=== PATIENT | female | born 1975 | race Caucasian/White ===

== ENCOUNTER 2022-02-17 04:08 | Emergency (ER) | payer OTHER, MEDICAID, SELFPAY ==
[2022-02-17 04:15] VITALS: BP 115/71; BP 126/76; PULSE 86; PULSE 92; RESP 18; TEMP 36.7; O2SAT 95; O2SAT 96; BMI 22.6
--- NOTE | 2022-02-17 04:28 | ED.GENADULT ---
HPI - General Adult General Chief complaint: General Medical Stated complaint: ?Drug Use Time Seen by Provider: 02/17/22 04:25 Source: patient Mode of arrival: EMS Limitations: no limitations History of Present Illness MD complaint: found sleeping in car Onset (ago): minute(s) (prior to arrival ) Severity: mild Relieving factors: none Exacerbating factors: other (did use heroin but did not need narcan woke up with voice) Associated symptoms: denies other symptoms Treatments prior to arrival: none Related Data Allergies Allergy/AdvReac Type Severity Reaction Status Date / Time trazodone [TRAZODONE] Allergy Unknown FACIAL Unverified 06/02/20 16:28 SWELLING seasonal Allergy Unknown Uncoded 05/19/13 00:00 SEASONAL ALLERGIES Allergy Unknown SINUS,ASTHM Uncoded 06/02/20 16:28 A Review of Systems Review of Systems: Constitutional : No Fever, No Chills Eyes: No Eye Pain, No Swelling, No Redness Cardiovascular : No Chest Pain, No SOB Respiratory : No Cough, No Sputum, No Wheezing Gastrointestinal : No Nausea, No Vomiting, No Diarrhea Musculoskeletal : No joint pain, No Myalgias, No Joint Swelling Skin : No Skin Lesions, No rash Neuro : No Weakness, No Numbness, No Dizziness, No Headache Psych : No Anxiety/Panic, No Depression PMFSH Past Medical History Attestation statement: The following information was validated with the patient. Medical History Opiate abuse, continuous Social History Social History (Updated 02/17/22 @ 04:29 by Didi Du DO) Patient Tobacco Use Status: Current someday Tobacco user Substance Use Type: Heroin Physical Exam ED Vital Signs: Vital Signs - 24 hr 02/17/22 04:15 Temperature 98.1 F Pulse Rate 92 Respiratory Rate 18 Blood Pressure 115/71 Pulse Oximetry 96 BMI result Body Mass Index 22.6 Appearance: Alert. Oriented X3. No acute distress. Eyes: Pupils equal, round and reactive to light. ENT: Pharynx normal. Neck: Normal inspection. Neck supple. CVS: Normal heart rate and rhythm. Respiratory: No respiratory distress. Abdomen: Soft and nontender. Skin: Skin warm and dry. Normal skin color. Extremities: No lower extremity edema. track sheffield noted on extremities no obvious signs of infection Neuro: Oriented X 3. No motor deficit. No sensory deficit. Medical Decision Making MDM Narrative Medical decision making narrative: 46 yo female found sleeping in car - used heroin but did not need narcan brought to ED, no SI, does not want SUDE evaluation, given narcan to take home and comprehensive care clinic information to take home. Agrees to stay til is it light out. Discharge Plan Discharge Clinical Impression: Opiate use Patient Disposition: Home, Self-Care Instructions: Opioid Use Disorder (ED) Additional Instructions: return to ED for any worsening symptoms or concerns please consider coming to our comprehensive care clinic for opiate treatment
--- NOTE | 2022-02-17 04:30 | PC.NURSE ---
Assumed care of pt Pt states pulled over to shoot some heroine but fell asleep before being able to do it. Pt was found by PD and called 911. Per EMS, pt was AxO x 4 upon arrival with no use of narcan Upon arrival, pt was AxO x 4, ambulatory. Pt calm and cooperative Refusing detox help at this time
[2022-02-17] MEDS: Naloxone HCl Nasal TAKE HOME 4 MG SPRAY NOSTRILALT (05:43)
== END 2022-02-17 05:55 | disposition home or self-care (01) ==
LOC: HO.ED 05:52
PROVIDERS: Emergency Provider Emergency Medicine
DX: T40.1X1A Poisoning by heroin, accidental (unintentional), initial encounter (principal); Y92.9 Unspecified place or not applicable; F11.19 Opioid abuse with unspecified opioid-induced disorder; Z71.52 Counseling for family member of drug abuser; Z79.899 Other long term (current) drug therapy
CPT/HCPCS: 99283

== ENCOUNTER 2022-09-06 11:37 | Emergency (ER) | payer MEDICAID, SELFPAY ==
--- NOTE | ~2022-09-06 | CT_ITS ---
EXAMINATION: NONCONTRAST HEAD CT NONCONTRAST MAXILLOFACIAL CT INDICATION INFORMATION: Fall. Syncope. COMPARISON: None TECHNIQUE: Separate noncontrast CT examinations of the head and maxillofacial bones were performed. Coronal and sagittal images were created for each examination at the technologist workstation. This CT examination was performed using dose optimization techniques as appropriate, variously including the following: *Automated exposure control *Adjustment of mA and/or kV according to patient size (this includes techniques or standardized protocols for targeted exams where dose is matched to indication/reason for exam; i.e. extremities or head) *Use of iterative reconstruction technique DLP: 840 mGy-cm FINDINGS: Head: There is no evidence of acute intracranial hemorrhage or territorial infarction. No abnormal mass effect or midline shift is seen. Landry to white matter differentiation is well preserved. No extra-axial fluid collections are identified. No hydrocephalus. No significant volume loss. There is no abnormal attenuation within the brain parenchyma. No acute soft tissue abnormality. No calvarial fracture. The mastoid air cells are well aerated. Maxillofacial: No acute maxillofacial fractures are seen. The pterygoid plates are intact. The lamina papyracea are intact. The zygomatic arches are intact. The nasal bone is intact. The mandible is intact. The orbital rims are intact. The frontal, maxillary, ethmoid, and sphenoid sinuses are well aerated. The uncinate process is normal bilaterally. The infundibula and middle meati are patent. The nasal septum deviates to the left. The mandibular heads are well-seated in the condylar fossa. The orbits demonstrate a normal appearance bilaterally. The globes are intact, and there are no suspicious findings to suggest retrobulbar hemorrhage. CT/CT facial bones wo IV con IMPRESSION: 1. No acute intracranial finding. 2. No acute maxillofacial fracture.
--- NOTE | 2022-09-06 11:42 | ECG_ITS ---
Test Reason : SYNCOPE Blood Pressure : / mmHG Vent. Rate : 068 BPM Atrial Rate : 068 BPM P-R Int : 178 ms QRS Dur : 088 ms QT Int : 464 ms P-R-T Axes : 068 050 057 degrees QTc Int : 493 ms Normal sinus rhythm Nonspecific T wave abnormality Prolonged QT Abnormal ECG When compared with ECG of 26-JUL-2012 04:22, T wave amplitude has decreased in Lateral leads Referred By: Marissa Rose Electronically Signed By:Keith Graves
[2022-09-06 11:49] VITALS: BP 126/84; BP 154/74; PULSE 81; PULSE 84; RESP 16; TEMP 36.4; O2SAT 97; BMI 22.6
[2022-09-06 12:39] VITALS: BP 111/79; PULSE 80; RESP 16; TEMP 36.4; O2SAT 99
--- NOTE | 2022-09-06 13:00 | PC.NURSE ---
patient a/ox4 . eileenrla . heart rate regular at 80 beats per minute . breathing even and unlabored , lungs clear throughout . patient has superficial scratches on bridge of nose , left side of cheek and forehead . bleeding controlled . abdomen soft . positive bowel sounds in all four quadrants . patient reports syncope episode believes it was anxiety related, history of panic attacks . labs drawn and sent . patient medicated with zofran as ordered . patient aware of plan of care .
--- NOTE | 2022-09-06 13:00 | PC.NURSE ---
patient a/ox4 . eileenrla . heart rate regular at 80 beats per minute . breathing even and unlabored . lungs clear throughout . skin warm and dry , appropriate for ethnicity . abdomen soft . positive for bowel sounds . Iv placed in left forearm . labs obtained and sent . patient to ultrasound . patient has had type and screen done . patient on cafeteria monitor . patient reports taking oral medication on August 16 and has had increased bleeding since then , overnight last night she has gone through three pads . patient is aware of plan of care .
[2022-09-06 13:03] LABS: MANUAL DIFF FLAG NO
[2022-09-06 13:04] LABS: Basophils Percent Auto 0.4 % (0-2); Eosinophils Percent Auto 0.4 % (0-4); Hematocrit 39.1 % (37.0-47.0); Hemoglobin 12.6 g/dl (12.0-16.0); Imm Gran Abs Auto 0.01 X10*3/uL (0.00-0.03); Imm Gran Pct Auto 0.2 % (0.0-0.4); Lymphocytes Absolute Auto 0.6 X10*3/uL (1.2-4.9); Lymphocytes Percent Auto 12.8 % (20-40); Mean Corpuscular HGB Conc 32.2 g/dl (31.0-35.0); Mean Corpuscular Hemoglobin 29.9 pg (27.0-33.0); Mean Corpuscular Volume 92.9 fL (80.0-98.0); Mean Platelet Volume 10.5 fL (9.4-12.3); Monocytes Absolute Auto 0.3 X10*3/uL (0.1-1.2); Monocytes Percent Auto 5.6 % (2-11); Neutrophils Absolute Auto 3.6 x10*3/uL (2.0-8.3); Neutrophils Percent Auto 80.6 % (45-73); Platelet Count 201 X10*3/uL (160-400); Red Blood Count 4.21 X10*6/uL (4.20-5.50); Red Cell Distribution Width 13.6 % (11.0-16.0); White Blood Count 4.5 X10*3/uL (4.8-10.8)
--- NOTE | 2022-09-06 13:08 | ED.SYNCOPE ---
HPI - Syncope General Chief Complaint: Syncope Stated Complaint: passed out at home,scratches to face,acosta,vomiting Time Seen by Provider: 09/06/22 11:41 Source: patient and EMS Mode of arrival: EMS Limitations: no limitations History of Present Illness HPI narrative: 46-year-old female with history of polysubstance abuse recent incarceration presents to the emergency department by EMS today after passing out at home in her driveway. Per EMS, patient vomited several times EN route to the hospital. Patient states states she does not remember falling, however; prior to passing out she had a headache and was not feeling well. On arrival to the emergency department multiple abrasions noted on patient's face. She endorses recent dry cough and vague upper respiratory symptoms. She denies any fever, chills, shortness breath, chest pain, diarrhea, constipation, numbness, tingling, weakness, or dizziness. She denies any known sick contacts or recent illness. MD complaint: loss of consciousness Onset (ago): hour(s) -: second(s) Prodromal symptoms: headache Witnessed: Yes - by Bystander Context: other (walking to mailbox) Injuries sustained associated with event: face Current symptoms: back to baseline Treatments prior to arrival: none Related Data Allergies Allergy/AdvReac Type Severity Reaction Status Date / Time trazodone [TRAZODONE] Allergy Unknown FACIAL Unverified 06/02/20 16:28 SWELLING seasonal Allergy Unknown Uncoded 05/19/13 00:00 SEASONAL ALLERGIES Allergy Unknown SINUS,ASTHM Uncoded 06/02/20 16:28 A Review of Systems Review of Systems: In addition to documented HPI above, the additional ROS was obtained: Constitutional: No Weight loss, No Fever, No Chills ENT/Mouth: No Ear Pain, No Nasal Congestion, No Sinus Pain, No Hoarseness, No sore throat, No Rhinorrhea, No Swallowing Difficulty Cardiovascular: No Chest Pain, No SOB Respiratory: No Sputum, No Wheezing Gastrointestinal: No Diarrhea, No Constipation, No Abdominal pain Genitourinary: No Dysuria, No Urinary Frequency, No Hematuria, No Urinary Incontinence/retention, No Urgency, No Flank Pain Musculoskeletal: No joint pain, No Myalgias, No Joint Swelling Skin: No Skin Lesions, No rash Neuro: No Weakness, No Numbness, No Paresthesias Yes all other systems are reviewed and are negative PMFSH Past Medical History Attestation statement: The following information was validated with the patient. Source: old records reviewed Medical History Opiate abuse, continuous Social History Social History Patient Tobacco Use Status: Current someday Tobacco user Substance Use Type: Heroin Advance Directives: No Advance Directives Information Provided: Yes Patient : No Physical Exam Vital Signs: Vital Signs: Last Vital Signs Temp 97.5 F 09/06/22 12:39 Pulse 80 09/06/22 12:39 Resp 16 09/06/22 12:39 BP 111/79 09/06/22 12:39 Pulse Ox 99 09/06/22 12:39 O2 Del Method 09/06/22 12:39 BMI result Body Mass Index 22.6 Const: General: cooperative, alert and awake Nutritional Appearance: average body habitus Orientation/consciousness: patient oriented x3 Limitations: no limitations HEENT: Head: Yes normal to inspection, Yes normocephalic, Yes abrasion, No hematoma, No scalp tenderness and No periorbital ecchymosis Ears: hearing grossly normal bilaterally and external ears normal General nose exam: Normal external nose present and Normal nares present Face and sinus: Yes face symmetric, Yes abrasion, No ecchymosis and No erythema Mouth: Normal oral and palatal mucosa present, lip normal and tongue normal Throat: Yes posterior oropharynx normal Eyes: General: appearance normal, both eyes and all related structures Visual Shipman: normal visual shipman by confrontation Alignment and Position: alignment normal Periorbital: periorbital findings normal Eyelids: Yes eyelids normal Conjunctivae: conjunctivae normal Sclerae: sclerae normal Corneas: corneas normal Pupils: Equal, round and reactive pupils present EOM: EOMs intact bilaterally Neck: Neck: Yes normal visual inspection and Yes full ROM Chest: Chest palpation & inspection: normal inspection of the chest Resp: Effort & Inspection: normal respiratory effort and not labored Auscultation: clear to auscultation bilaterally, no crackles, no rhonchi and no wheezes Cardio: Rate: regular rate Rhythm: regular rhythm Back/Spine/Pelvis: Cervical Spine: cervical ROM normal Thoracic/Lumbar Spine: thoraco-lumbar ROM normal Skin: General skin exam: no rashes or lesions noted Trauma: abrasion Hair: normal Nails: normal Neuro: General: patient oriented x3, tone normal and moves all extremities Cranial nerves: Yes Equal, round and reactive pupils present Cognition (Neuro): normal cognition Gait exam (Neuro): Normal gait present Motor exam (neuro): 5/5 motor strength present throughout Extrem: General: Yes normal to inspection, Yes full ROM and Yes capillary refill normal Psych: Appearance: grossly normal Mental Status: mental status grossly normal Speech and movement: Normal speech and movement present Affect: normal affect Attitude: cooperative Thought content: Normal thought content present Medications Administered Discontinued Medications Generic Name Dose Route Start Last Admin Trade Name Freq PRN Reason Stop Dose Admin Ondansetron HCl 4 mg 09/06/22 13:08 09/06/22 13:13 Ondansetron Odt 4 Mg Tab.Rapdis TRANSLINGU 09/06/22 13:09 4 mg ONCE ONE Administration Medical Decision Making Medical Decision Making [facility] Narrative: 46-year-old female with history of polysubstance abuse and recent incarceration presents to the emergency department by EMS today after passing out at home in her driveway sustaining facial abrasions. Per EMS, patient vomited several times EN route to the hospital. Patient states states she does not remember falling, however; prior to passing out she had a headache and was not feeling well. CT head/brain/maxillofacial showing no acute intracranial findings, no acute maxillofacial fractures. Serology negative. Urinalysis negative for infection. Blood work unremarkable. EKG NSR with prolonged QT, when compared to EKG 07/26/12 t wave amplitude has decreased in lateral leads. Pt safe for discharge with recommendation to follow-up with her primary care provider. HPI, PE, diagnostics, and plan discussed with patient with no unanswered questions at this time. Educated to return to the emergency department with headache, vision changes, worsening dizziness, numbness, tingling, weakness, chest pain, shortness breath or any other emergent symptoms. Lab Data [facility] Lab Attestation statement: I reviewed the patient's lab results. Result Diagrams: 09/06/22 12:57 09/06/22 12:57 Labs: Lab Results 09/06/22 12 12 Range/Units 12:41 12:57 12:57 WBC 4.5 L (4.8-10.8) X10*3/uL RBC 4.21 (4.20-5.50) X10*6/uL Hgb 12.6 (12.0-16.0) g/dl Hct 39.1 (37.0-47.0) % MCV 92.9 (80.0-98.0) fL MCH 29.9 (27.0-33.0) pg MCHC 32.2 (31.0-35.0) g/dl RDW 13.6 (11.0-16.0) % Plt Count 201 (160-400) X10*3/uL MPV 10.5 (9.4-12.3) fL Immature Gran % (Auto) 0.2 (0.0-0.4) % Neut % (Auto) 80.6 H (45-73) % Lymph % (Auto) 12.8 L (20-40) % Owen % (Auto) 5.6 (2-11) % Eos % (Auto) 0.4 (0-4) % Baso % (Auto) 0.4 (0-2) % Lymph # (Auto) 0.6 L (1.2-4.9) X10*3/uL Owen # (Auto) 0.3 (0.1-1.2) X10*3/uL Eos # (Auto) 0.0 (0.0-0.4) X10*3/uL Baso # (Auto) 0.0 (0.0-0.2) X10*3/uL Abs Immat Gran (auto) 0.01 (0.00-0.03) X10*3/uL Absolute Neuts (auto) 3.6 (2.0-8.3) x10*3/uL Absolute Nucleated RBC 0.000 (0.0-0.012) X10*3/uL Nucleated RBC % (auto) 0.0 (0.0-0.2) /100WBC Sodium 140 (135-145) mmol/L Potassium 4.3 (3.3-5.1) mmol/L Chloride 104 (96-108) mmol/L Carbon Dioxide 26 (22-29) mmol/L Anion Gap 14 (12-20) BUN 23 H (9-16) mg/dL Creatinine 1.08 (0.5-1.4) mg/dL Estim Creat Clear Calc 62.2 Estimated GFR 55 Random Glucose 102 (60-115) mg/dL Calcium 9.6 (8.4-10.2) mg/dL Total Bilirubin 0.5 (0.0-1.0) mg/dL AST 35 H (5-31) U/L ALT 65 H (0-31) U/L Alkaline Phosphatase 166 H (39-117) U/L Troponin I High Sens (<3.5-17.0) ng/L Total Protein 7.6 (6.5-8.0) g/dL Albumin 4.6 (3.5-5.0) g/dL Urine Color Urine Appearance Urine pH (5.0-9.0) Ur Specific Bartlett (1.005-1.025) Urine Protein (Neg-Trace) mg/dL Urine Glucose (UA) (Negative) mg/dL Urine Ketones (Negative) mg/dL Urine Blood (Negative) Urine Nitrite (Negative) Ur Leukocyte Esterase (Negative) Urine RBC (0-2) /HPF Urine WBC (0-5) /HPF Ur Squamous Epith Cells (0-2) /HPF Urine Bacteria (None Seen) Hyaline Casts (0-2) /LPF Influenza Type A (PCR) NEGATIVE (Negative) Influenza Type B (PCR) NEGATIVE (Negative) RSV RNA Qual (PCR) NEGATIVE (Negative) SARS-CoV-2 RNA (RT-PCR) NEGATIVE (Negative) 09/06/22 09/06/22 Range/Units 12:57 13:22 WBC (4.8-10.8) X10*3/uL RBC (4.20-5.50) X10*6/uL Hgb (12.0-16.0) g/dl Hct (37.0-47.0) % MCV (80.0-98.0) fL MCH (27.0-33.0) pg MCHC (31.0-35.0) g/dl RDW (11.0-16.0) % Plt Count (160-400) X10*3/uL MPV (9.4-12.3) fL Immature Gran % (Auto) (0.0-0.4) % Neut % (Auto) (45-73) % Lymph % (Auto) (20-40) % Owen % (Auto) (2-11) % Eos % (Auto) (0-4) % Baso % (Auto) (0-2) % Lymph # (Auto) (1.2-4.9) X10*3/uL Owen # (Auto) (0.1-1.2) X10*3/uL Eos # (Auto) (0.0-0.4) X10*3/uL Baso # (Auto) (0.0-0.2) X10*3/uL Abs Immat Gran (auto) (0.00-0.03) X10*3/uL Absolute Neuts (auto) (2.0-8.3) x10*3/uL Absolute Nucleated RBC (0.0-0.012) X10*3/uL Nucleated RBC % (auto) (0.0-0.2) /100WBC Sodium (135-145) mmol/L Potassium (3.3-5.1) mmol/L Chloride (96-108) mmol/L Carbon Dioxide (22-29) mmol/L Anion Gap (12-20) BUN (9-16) mg/dL Creatinine (0.5-1.4) mg/dL Estim Creat Clear Calc Estimated GFR Random Glucose (60-115) mg/dL Calcium (8.4-10.2) mg/dL Total Bilirubin (0.0-1.0) mg/dL AST (5-31) U/L ALT (0-31) U/L Alkaline Phosphatase (39-117) U/L Troponin I High Sens < 3.5 (<3.5-17.0) ng/L Total Protein (6.5-8.0) g/dL Albumin (3.5-5.0) g/dL Urine Color Yellow Urine Appearance Clear Urine pH 6.0 (5.0-9.0) Ur Specific Bartlett 1.020 (1.005-1.025) Urine Protein Trace (Neg-Trace) mg/dL Urine Glucose (UA) Negative (Negative) mg/dL Urine Ketones Negative (Negative) mg/dL Urine Blood Negative (Negative) Urine Nitrite Negative (Negative) Ur Leukocyte Esterase Negative (Negative) Urine RBC 0-2 (0-2) /HPF Urine WBC 0-5 (0-5) /HPF Ur Squamous Epith Cells 3-5 (0-2) /HPF Urine Bacteria None Seen (None Seen) Hyaline Casts 0-2 (0-2) /LPF Influenza Type A (PCR) (Negative) Influenza Type B (PCR) (Negative) RSV RNA Qual (PCR) (Negative) SARS-CoV-2 RNA (RT-PCR) (Negative) Radiology Impression Discussion of test interpretation with radiology: I have reviewed the radiologist's reading. Radiologist Impression: EXAMINATION: NONCONTRAST HEAD CT NONCONTRAST MAXILLOFACIAL CT INDICATION INFORMATION: Fall. Syncope. COMPARISON: None TECHNIQUE: Separate noncontrast CT examinations of the head and maxillofacial bones were performed. Coronal and sagittal images were created for each examination at the technologist workstation. This CT examination was performed using dose optimization techniques as appropriate, variously including the following: *Automated exposure control *Adjustment of mA and/or kV according to patient size (this includes techniques or standardized protocols for targeted exams where dose is matched to indication/reason for exam; i.e. extremities or head) *Use of iterative reconstruction technique DLP: 840 mGy-cm FINDINGS: Head: There is no evidence of acute intracranial hemorrhage or territorial infarction. No abnormal mass effect or midline shift is seen. Landry to white matter differentiation is well preserved. No extra-axial fluid collections are identified. No hydrocephalus. No significant volume loss. There is no abnormal attenuation within the brain parenchyma. No acute soft tissue abnormality. No calvarial fracture. The mastoid air cells are well aerated. Maxillofacial: No acute maxillofacial fractures are seen. The pterygoid plates are intact. The lamina papyracea are intact. The zygomatic arches are intact. The nasal bone is intact. The mandible is intact. The orbital rims are intact. The frontal, maxillary, ethmoid, and sphenoid sinuses are well aerated. The uncinate process is normal bilaterally. The infundibula and middle meati are patent. The nasal septum deviates to the left. The mandibular heads are well-seated in the condylar fossa. The orbits demonstrate a normal appearance bilaterally. The globes are intact, and there are no suspicious findings to suggest retrobulbar hemorrhage. CT/CT head/brain wo IV con IMPRESSION: 1.? No acute intracranial finding. 2.? No acute maxillofacial fracture. ? Dictated By: Juan Mcdonald MD Signed By: <Electronically signed by Juan Mcdonald MD in OV> 09/06/22 1258 DD/ 1213 TD/TT:? System Support Analyst: MARY Discharge Plan Discharge Clinical Impression: Syncope Patient Disposition: Home, Self-Care Instructions: Syncope (ED), Panic Attack (ED) Additional Instructions: Your CT head/brain/maxillofacial shows no acute intracranial findings, no acute maxillofacial fractures. You are negative for flu, RSV, or Covid. Your urine sample is negative for infection. Your blood work unremarkable. EKG is normal sinus rhythm with prolonged QT. You are safe for discharge at this time. Please follow-up with her primary care provider. Please return to the emergency department with headache, vision changes, worsening dizziness, numbness, tingling, weakness, chest pain, shortness breath or any other emergent symptoms. Referrals: [facility] [Provider Group] [facility] [Provider Group] [facility] [Provider Group] Stand Alone Forms: Work/School Release Interventions: ED Discharge Assessment Last Done: 09/06/22 14:06 Discharge Date/Time: 09/06/22 14:07 Print Language: Amharic
[2022-09-06] MEDS: Ondansetron ODT 4 MG TAB.RAPDIS TRANSLINGU (13:13)
[2022-09-06 13:26] LABS: Alanine Aminotransferase 65 U/L (0-31); Albumin Level 4.6 g/dL (3.5-5.0); Alkaline Phosphatase 166 U/L (39-117); Anion Gap 14 (12-20); Aspartate Amino Transferase 35 U/L (5-31); Bilirubin Total 0.5 mg/dL (0.0-1.0); Blood Urea Nitrogen 23 mg/dL (9-16); Calcium 9.6 mg/dL (8.4-10.2); Carbon Dioxide 26 mmol/L (22-29); Chloride 104 mmol/L (96-108); Creatinine Clr Calc Pharmacy 62.2; Estimated Glomerular Filt Rate 55; Glucose Random 102 mg/dL (60-115); Potassium 4.3 mmol/L (3.3-5.1); Sodium 140 mmol/L (135-145); Total Protein 7.6 g/dL (6.5-8.0)
[2022-09-06 13:34] LABS: Appearance Urine Clear; Color Urine Yellow; Glucose Urine UA Negative (Negative); Leukocyte Esterase Urine Negative (Negative); Nitrite Urine Negative (Negative); Urine Blood Negative (Negative); Urine Ketones Negative (Negative); Urine Protein Trace mg/dL (Neg-Trace)
[2022-09-06 13:36] LABS: Influenza A PCR NEGATIVE (Negative); Influenza B PCR NEGATIVE (Negative); Resp Syncy Virus RNA Qual PCR NEGATIVE (Negative); SARS COV2 PCR INHOUSE NEGATIVE (Negative)
[2022-09-06 13:39] LABS: Bacteria Urine None Seen (None Seen); Hyaline Casts Urine 0-2 /LPF (0-2); RBC Urine 0-2 /HPF (0-2); WBC Urine 0-5 /HPF (0-5)
[2022-09-06 13:40] LABS: Troponin-I High Sensitivity < 3.5 ng/L (<3.5-17.0)
== END 2022-09-06 14:07 | disposition home or self-care (01) ==
PROVIDERS: Nurse Practitioner Family; Emergency Provider Emergency Medicine Emergency Medical Services
DX: R55 Syncope and collapse (principal); Z20.822 Contact with and (suspected) exposure to COVID-19; Z20.828 Contact with and (suspected) exposure to other viral communicable diseases; F11.20 Opioid dependence, uncomplicated; F17.200 Nicotine dependence, unspecified, uncomplicated
CPT/HCPCS: 0241U; 36415; 70450; 70486; 80053; 81001; 84484; 85025; 93005; 99284

== ENCOUNTER 2022-09-07 05:04 | Emergency (ER) | payer MEDICAID, SELFPAY ==
[2022-09-07 05:15] VITALS: BP 112/20; BP 117/72; PULSE 104; PULSE 85; RESP 14; TEMP 36.7; O2SAT 96; O2SAT 99; BMI 22.6
[2022-09-07 05:50] LABS: COVID-19 Test Negative (Negative)
[2022-09-07 06:18] LABS: Appearance Urine Clear; Color Urine Yellow; Glucose Urine UA Negative (Negative); Leukocyte Esterase Urine Trace (Negative); Nitrite Urine Negative (Negative); PH 5.5 (5.0-9.0); Specific Gravity - Urine 1.025 (1.005-1.025); UMIC TRIGGER UA YES; Urine Blood Negative (Negative); Urine Ketones Negative (Negative); Urine Protein Trace mg/dL (Neg-Trace)
[2022-09-07 06:23] LABS: Bacteria Urine 2+ (None Seen); Hyaline Casts Urine 0-2 /LPF (0-2); RBC Urine 0-2 /HPF (0-2); WBC Urine 0-5 /HPF (0-5)
[2022-09-07 06:27] LABS: Amphetamine Screen Urine Not Detected (Not Detect); Barbiturates, Urine Not Detected (Not Detect); Benzodiazepines Screen Urine Not Detected (Not Detect); Cannabinoid Screen Urine Not Detected (Not Detect); Cocaine Screen Urine POSITIVE (Not Detect); Fentanyl, urine POSITIVE (Not Detect); Opiate Screen Urine POSITIVE (Not Detect); Phencyclidine Screen Urine Not Detected (Not Detect)
[2022-09-07 07:05] LABS: UPreg QC Valid YES; Urine Pregnancy NEGATIVE (NEGATIVE)
--- NOTE | 2022-09-07 07:11 | ED.GENADULT ---
HPI - General Adult General Chief complaint: Anxiety Stated complaint: FOUND PASSED OUT IN CAR,?CRISIS Time Seen by Provider: 09/07/22 06:38 Source: patient Mode of arrival: EMS History of Present Illness HPI narrative: This is a 46-year-old female who is brought in by EMS with EMS reports that patient was found by police department ?passed out in a parked vehicle?. Patient states that she was not passed out and that she saw the police come into the parking lot. She states that ?I was trying to use then lost the vein?. As per EMS reports no Narcan was given she denies SI/HI and is not interested in detox Related Data Allergies Allergy/AdvReac Type Severity Reaction Status Date / Time trazodone [TRAZODONE] Allergy Unknown FACIAL Unverified 06/02/20 16:28 SWELLING seasonal Allergy Unknown Uncoded 05/19/13 00:00 SEASONAL ALLERGIES Allergy Unknown SINUS,ASTHM Uncoded 06/02/20 16:28 A Review of Systems Review of Systems: Pertinent positives and negatives as stated in HPI 10 point review of systems is otherwise negative. PMFSH Past Medical History Source: nursing notes reviewed Medical History Opiate abuse, continuous Social History Social History Patient Tobacco Use Status: Current someday Tobacco user Substance Use Type: Heroin Advance Directives: No Advance Directives Information Provided: Yes Physical Exam ED Vital Signs: Vital Signs - 24 hr 09/07/22 05:15 Temperature 98.1 F Pulse Rate 85 Respiratory Rate 14 Blood Pressure 117/72 Pulse Oximetry 96 Oxygen Delivery Method Room Air BMI result Body Mass Index 22.6 VITAL SIGNS: Reviewed. GENERAL: Well developed, well nourished, in no acute distress. HEAD: Normocephalic/facial abrasion to the nose, under the left infraorbital, as well as the left cheek EYES: PERRLA, EOMI EARS: Ext canals without abnormality OROPHARYNX: no oral lesions noted, posterior pharynx clear LUNGS: Normal breath sounds. No adventitious sounds or accessory muscle use. SpO2<96> CARDIOVASCULAR: Regular rate and rhythm without noted murmurs ABDOMEN: Soft, non-tender, non-distended with bowel sounds. MUSCULOSKELETAL: No tenderness, deformities, or effusions noted on gross inspection. EXTREMITIES: No cyanosis, clubbing or edema. SKIN: Inspection of the skin reveals no rashes NEUROLOGIC: Alert and oriented x 4. Strength and sensation to light touch were grossly intact x 4. Medical Decision Making Medical Decision Making [facility] Narrative: 46-year-old female with history and clinical presentation consistent with drug use, no Narcan needed or given EN route or prior to arrival of EMS, no need for Narcan here in the emergency room, patient is completely alert and oriented, she denies any SI/HI does not want any detox at this time. Patient is hemodynamically stable will be discharged home with home Narcan. All physical injuries noted were from prior visits to the emergency room and I have reviewed all of these documents and feel that the workup was appropriate. Lab Data [facility] Lab Attestation statement: I reviewed the patient's lab results. Labs: Lab Results 09/07/22 09/07/22 09/07/22 Range/Units 05:18 06:07 06:07 Urine Color Yellow Urine Appearance Clear Urine pH 5.5 (5.0-9.0) Ur Specific [place] 1.025 (1.005-1.025) Urine Protein Trace (Neg-Trace) mg/dL Urine Glucose (UA) Negative (Negative) mg/dL Urine Ketones Negative (Negative) mg/dL Urine Blood Negative (Negative) Urine Nitrite Negative (Negative) Ur Leukocyte Esterase Trace H (Negative) Urine RBC 0-2 (0-2) /HPF Urine WBC 0-5 (0-5) /HPF Ur Squamous Epith Cells 11-20 (0-2) /HPF Urine Bacteria 2+ (None Seen) Hyaline Casts 0-2 (0-2) /LPF Urine Test (NEGATIVE) Urine Opiates Screen POSITIVE H (Not Detect) Urine Fentanyl Screen POSITIVE H (Not Detect) Ur Barbiturates Screen Not Detected (Not Detect) Ur Phencyclidine Scrn Not Detected (Not Detect) Ur Amphetamines Screen Not Detected (Not Detect) U Benzodiazepines Scrn Not Detected (Not Detect) Urine Cocaine Screen POSITIVE H (Not Detect) U Marijuana (THC) Screen Not Detected (Not Detect) COVID-19 (MARY) Negative (Negative) COVID-19 Clin Com See Note 09/07/22 Range/Units 06:07 Urine Color Urine Appearance Urine pH (5.0-9.0) Ur Specific [place] (1.005-1.025) Urine Protein (Neg-Trace) mg/dL Urine Glucose (UA) (Negative) mg/dL Urine Ketones (Negative) mg/dL Urine Blood (Negative) Urine Nitrite (Negative) Ur Leukocyte Esterase (Negative) Urine RBC (0-2) /HPF Urine WBC (0-5) /HPF Ur Squamous Epith Cells (0-2) /HPF Urine Bacteria (None Seen) Hyaline Casts (0-2) /LPF Urine Test NEGATIVE (NEGATIVE) Urine Opiates Screen (Not Detect) Urine Fentanyl Screen (Not Detect) Ur Barbiturates Screen (Not Detect) Ur Phencyclidine Scrn (Not Detect) Ur Amphetamines Screen (Not Detect) U Benzodiazepines Scrn (Not Detect) Urine Cocaine Screen (Not Detect) U Marijuana (THC) Screen (Not Detect) COVID-19 (MARY) (Negative) COVID-19 Clin Com External Record Review External record reviewed: Outpatient record Social Determinants Polysubstance use Discharge Plan Discharge Clinical Impression: Polysubstance use disorder, Anxiety Patient Disposition: Home, Self-Care Instructions: Anxiety (ED), Polysubstance Abuse (ED) Additional Instructions: Return to the ER for any worsening or recurrence of symptoms. Referrals: [facility] [Primary Care Provider] -
[2022-09-07] MEDS: Naloxone HCl Nasal TAKE HOME 4 MG SPRAY NOSTRILALT (07:37)
== END 2022-09-07 07:38 | disposition home or self-care (01) ==
PROVIDERS: Emergency Provider Student in an Organized Health Care Education/Training Program
DX: F11.19 Opioid abuse with unspecified opioid-induced disorder (principal); F17.210 Nicotine dependence, cigarettes, uncomplicated; Z71.6 Tobacco abuse counseling; Z20.822 Contact with and (suspected) exposure to COVID-19; Z79.899 Other long term (current) drug therapy
CPT/HCPCS: 80307; 81001; 81025; 87635; 99284

== ENCOUNTER 2023-02-21 09:29 | Emergency (ER) | payer OTHER, MEDICAID, SELFPAY ==
[2023-02-21 09:35] VITALS: BP 144/75; PULSE 64; O2SAT 98
--- NOTE | 2023-02-21 09:48 | ED.GENADULT ---
HPI - General Adult General Chief complaint: General Medical Stated complaint: WANTS DETOX FOR HEROIN RELAPSE 2 MTHS AGO PER EMS Time Seen by Provider: 02/21/23 09:44 Source: patient and EMS Mode of arrival: EMS Limitations: no limitations History of Present Illness HPI narrative: 47-year-old female with history of drug abuse presents with falling sleep on the side of the road. She denies suicidal or homicidal ideation. She uses opioids on a intermittent basis. She denies any additional alcohol drug use. Patient reports having not slept for the past 2-3 days. She is in the process of being evaluated for an IOP at the [facility]. She does not wish to have any additional resources provided to her at this time. Related Data Allergies Allergy/AdvReac Type Severity Reaction Status Date / Time trazodone [TRAZODONE] Allergy Unknown FACIAL Verified 02/21/23 09:53 SWELLING seasonal Allergy Unknown Nasal Uncoded 02/21/23 09:53 congestion SEASONAL ALLERGIES Allergy Unknown SINUS,ASTHM Uncoded 06/02/20 16:28 A Review of Systems Review of Systems: GEN: Well developed, no acute distress, alert, oriented HEENT: Normocephalic, atraumatic, normal external ears, nose appears normal, no oropharyngeal edema or exudates Eyes: Normal to appearance Neck: Supple, no lymphadenopathy Respiratory: Talks in complete sentences, no respiratory distress, clear to auscultation bilaterally Cardiovascular: Regular rate and rhythm, no murmurs rubs or gallops Abdomen: Soft, nontender, nondistended, no guarding, no rebound Back: No CVA tenderness Extremities: No clubbing cyanosis or edema Neurologic: No focal neurologic deficits, cranial nerves 2-12 intact, strength is 5/5 bilaterally Skin: No rash PMFSH Past Medical History Medical History Opiate abuse, continuous Social History Social History Patient Tobacco Use Status: Current someday Tobacco user Substance Use Type: Heroin Physical Exam ED Vital Signs: Vital Signs - 24 hr 02/21/23 09:53 Temperature 97.8 F Pulse Rate 69 Respiratory Rate 16 Blood Pressure 127/75 Pulse Oximetry 95 Oxygen Delivery Method Room Air BMI result Body Mass Index 22.6 GEN: Well developed, no acute distress, alert, oriented HEENT: Normocephalic, atraumatic, normal external ears, nose appears normal Eyes: Normal to appearance Neck: Supple, no lymphadenopathy Respiratory: Talks in complete sentences, no respiratory distress Extremities: No clubbing cyanosis or edema Neurologic: No focal neurologic deficits, cranial nerves 2-12 intact, gait normal Skin: No rash Course Course Course Narrative: 47-year-old female with history of substance abuse presents with falling asleep on the side a row. She denies any suicide or homicidal ideation. She does not wish psychiatric evaluation. She does not seek additional resources for assistance. She is currently being evaluated for an IOP at the [facility]. She will be discharged at this time. Patient has Narcan at home Medical Decision Making Medical Decision Making [facility] Narrative: Patient presents with polysubstance abuse. She denies any suicide or homicidal ideation. She does not warrant being held against her wishes. This time, patient has decision-making capacity may be discharged home. Differential Diagnosis Differential Diagnoses: The differential diagnosis associated with the presentation includes (Depression, anxiety, substance abuse) Independent Historian Clinical information obtained from an independent historian. History obtained from or confirmed by: EMS Chronic Conditions Patient?s care impacted by: Other (Substance abuse) Discharge Plan Discharge Clinical Impression: Opioid abuse Patient Disposition: Home, Self-Care Instructions: Opioid Use Disorder (ED) Referrals: [facility] [Provider Group]
[2023-02-21 09:53] VITALS: BP 127/75; PULSE 69; RESP 16; TEMP 36.6; O2SAT 95; BMI 22.6
[2023-02-21] MEDS: Naloxone HCl Nasal TAKE HOME 4 MG SPRAY NOSTRILALT (10:48)
--- NOTE | 2023-02-21 11:19 | MHC.RECOVSUP ---
Met with pt in ED6h who is here for OUD. Pt informs she has been using about 1 bag of heroin a day with a little cocaine in addition to her 98mg of Methadone from [facility] for about 1 month. Pt informs [facility] and thinks that will help her cut back on her use and is willing to communicate with [facility] about increasing her dose. At this time pt is not interested in ATS and was provided resources and encouraged to call [facility] with any questions. pt is set to Dc and provider is aware.
== END 2023-02-21 10:50 | disposition home or self-care (01) ==
PROVIDERS: Emergency Provider Emergency Medicine
DX: F11.10 Opioid abuse, uncomplicated (principal); F17.200 Nicotine dependence, unspecified, uncomplicated
CPT/HCPCS: 99282; 99283

== ENCOUNTER 2023-06-26 03:04 | Emergency (ER) | payer OTHER, SELFPAY ==
[2023-06-26 03:09] VITALS: BP 124/88; BP 130/70; PULSE 90; PULSE 92; RESP 18; TEMP 36.8; O2SAT 98; BMI 22.6
--- NOTE | 2023-06-26 03:53 | MHC.EDTECH ---
PT belongings and valuables locked in [facility] laundry closet. 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
--- NOTE | 2023-06-26 04:12 | ED.OVERDOSE ---
HPI - Overdose General Chief Complaint: Overdose Stated Complaint: Substance Abuse Time Seen by Provider: 06/26/23 03:56 Source: patient and EMS Mode of arrival: EMS Limitations: no limitations History of Present Illness HPI Narrative: A 47-year-old female came in by ambulance for evaluation after cocaine use. 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 Related Data Allergies Allergy/AdvReac Type Severity Reaction Status Date / Time trazodone [TRAZODONE] Allergy Unknown FACIAL Verified 02/21/23 09:53 SWELLING seasonal Allergy Unknown Nasal Uncoded 02/21/23 09:53 congestion SEASONAL ALLERGIES Allergy Unknown SINUS,ASTHM Uncoded 06/02/20 16:28 A Review of Systems Review of Systems: All other systems are reviewed and are negative Constitutional: Reports as per HPI and Reports no additional constitutional complaints Eyes: Reports as per HPI and Reports no additional eye complaints Reports system reviewed and no additional complaints, except as documented Cardiovascular: Reports as per HPI and Reports no additional cardiovascular complaints Respiratory: Reports as per HPI and Reports no additional respiratory complaints Gastrointestinal: Reports as per HPI and Reports no additional gastrointestinal complaints Genitourinary: Reports no additional female genitourinary complaints Musculoskeletal: Reports no additional musculoskeletal complaints Skin/Breast: Reports system reviewed and no additional complaints, except as docu Psychiatric: Reports no additional psychiatric complaints Endocrine: Reports no additional endocrine complaints Hematologic/Lymphatic: Reports no additional hematologic/lymphatic complaints Allergic/Immunologic: Reports no additional allergic/immunologic complaints Reports system reviewed and no additional complaints, except as documented and Reports Abnormal speech present [facility] Past Medical History Medical History Opiate abuse, continuous Social History Social History Patient Tobacco Use Status: Current someday Tobacco user Substance Use Type: Heroin Physical Exam Vital Signs: Vital Signs: Last Vital Signs Temp 98.2 F 06/26/23 03:09 Pulse 90 06/26/23 03:09 Resp 18 06/26/23 03:09 BP 124/88 06/26/23 03:09 Pulse Ox 98 06/26/23 03:09 O2 Del Method Room Air 06/26/23 03:09 BMI result Body Mass Index 22.6 Vital signs have been reviewed and appear to be correct. Blood pressure elevated. Heart rate normal. Respiratory rate normal. Temperature normal. Oxygen saturation normal. Appearance: Alert. Oriented X3. No acute distress. Head: Normal external exam. Normocephalic. Atraumatic. No Valenzuela signs noted. No raccoon eyes noted Eyes: PERRLA. EOMI. Conjunctiva and sclera normal. Eyelids normal. ENT: TM's Normal. Pharynx normal. Uvula midline. Moist mucous membranes. No trismus noted. No drooling noted. No muffled voice noted. Neck: Normal inspection. Neck supple. FROM. No adenopathy. Thyroid Normal. No meningeal signs. No neck mass noted. CVS: Normal heart rate and rhythm. Heart sound normal. No murmurs noted. Pulses normal throughout. Respiratory: No respiratory distress. Painless inspiration. Breath sounds normal. No wheezes/rales/rhonchi noted. Chest nontender. No accessory muscle usage noted or decreased air movement noted. Abdomen: Soft and nontender. Bowel sounds normal in all 4 quadrants. No distention noted. No organomegaly noted. No visible injury noted. Back: No CVA tenderness. Full range of motion noted. Skin: Skin warm and dry. Normal skin color. Normal skin turgor. No rashes/lesions/lacerations noted. Extremities: No lower extremity edema. Extremities exhibit normal range of motion. Extremities nontender. Neuro: Oriented X 3. Cranial nerve exam: II-XII are grossly intact No motor deficit. No sensory deficit. Reflexes normal. Patient Orientation: Person, Place, Time and Situation, okay hygiene and grooming. Fair eye contact, attentive, no tics or tremors. Level of Consciousness: Awake, Appropriate and Alert Patient Behavior: Appropriate, Guarded, Cooperative and Anxious Mood Description: Constricted, Blunted and Apprehensive Affect Description: Constricted, Blunted and Apprehensive Patient Cognition Impaired: No Ability to Follow Directions: Excellent Speech Pattern: Clear, Appropriate and Spontaneous Speech, nonpressured, spontaneous with regular rate and rhythm, normal volume and prosody. No dysarthria. Memory Description: Intact, Immediate Intact and Short Term Intact Hallucinations: None Delusions: Not Present Thought Process: Intact Thought Content: positive for Intact, positive for Logical, denies Suicidal Ideation and denies Homicidal Ideation. Depressive Symptoms: Not present. Judgement and Insight: Limited but adequate. Course Course Course Narrative: Smoked crack cocaine to help her stay up and keep working. No SI, no HI, no depression no hallucination. Medical Decision Making Differential Diagnosis Differential Diagnoses: The differential diagnosis associated with the presentation includes (Substance abuse, respiratory depression, SI, HI.) Admission/Observation Consideration of admission/observation: Escalation of care including admission/observation considered Discharge Plan Discharge Clinical Impression: Cocaine intoxication Patient Disposition: Home, Self-Care Instructions: Cocaine Abuse (ED) Referrals: [facility] [Primary Care Provider] -
[2023-06-26 05:49] VITALS: BP 112/65; PULSE 74; RESP 16; O2SAT 98
--- NOTE | 2023-06-26 06:07 | PC.NURSE ---
This RN assumed care upon patient arrival. Patient calm and cooperative, able to make needs known
== END 2023-06-26 06:22 | disposition home or self-care (01) ==
PROVIDERS: Emergency Provider Emergency Medicine
DX: F14.120 Cocaine abuse with intoxication, uncomplicated (principal); F17.200 Nicotine dependence, unspecified, uncomplicated
CPT/HCPCS: 99284; 99285

== ENCOUNTER 2024-04-12 23:35 | Emergency (ER) | payer OTHER, SELFPAY ==
[2024-04-12 23:43] VITALS: BP 110/57; PULSE 82; RESP 12; TEMP 36.8; O2SAT 98
[2024-04-12 23:46] VITALS: BP 138/78; PULSE 70; O2SAT 99; BMI 23.4
[2024-04-13 00:44] LABS: MANUAL DIFF FLAG NO
[2024-04-13 00:47] LABS: Basophils Percent Auto 0.2 % (0-2); Eosinophils Absolute Auto 0.1 X10*3/uL (0.0-0.4); Eosinophils Percent Auto 1.7 % (0-4); Hematocrit 28.8 % (37.0-47.0); Hemoglobin 10.1 g/dl (12.0-16.0); Imm Gran Abs Auto 0.01 X10*3/uL (0.00-0.03); Imm Gran Pct Auto 0.2 % (0.0-0.4); Lymphocytes Absolute Auto 0.8 X10*3/uL (1.2-4.9); Lymphocytes Percent Auto 16.3 % (20-40); Mean Corpuscular HGB Conc 35.1 g/dl (31.0-35.0); Mean Corpuscular Hemoglobin 32.3 pg (27.0-33.0); Monocytes Absolute Auto 0.5 X10*3/uL (0.1-1.2); Neutrophils Absolute Auto 3.4 x10*3/uL (2.0-8.3); Neutrophils Percent Auto 71.6 % (45-73); Platelet Count 166 X10*3/uL (160-400); Red Blood Count 3.13 X10*6/uL (4.20-5.50); Red Cell Distribution Width 13.8 % (11.0-16.0); White Blood Count 4.7 X10*3/uL (4.8-10.8)
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
[2024-04-13 01:06] LABS: Alanine Aminotransferase 15 U/L (0-31); Albumin Level 3.6 g/dL (3.5-5.0); Alkaline Phosphatase 52 U/L (39-117); Anion Gap 14 (12-20); Aspartate Amino Transferase 18 U/L (5-31); Bilirubin Total 0.5 mg/dL (0.0-1.0); Blood Urea Nitrogen 12 mg/dL (9-16); Calcium 9.1 mg/dL (8.4-10.2); Carbon Dioxide 27 mmol/L (22-29); Chloride 103 mmol/L (96-108); Creatinine Clr Calc Pharmacy 65.8; Estimated Glomerular Filt Rate 60; Glucose Random 119 mg/dL (60-115); Potassium 3.8 mmol/L (3.3-5.1); Sodium 140 mmol/L (135-145); Total Protein 6.3 g/dL (6.5-8.0)
[2024-04-13 01:21] LABS: TSH reflex Free T4 0.54 uIU/mL (0.32-4.0)
[2024-04-13 03:31] VITALS: BP 133/92; PULSE 76; RESP 16; TEMP 36.4; O2SAT 99
== END 2024-04-13 03:32 | disposition home or self-care (01) ==
PROVIDERS: Emergency Provider Emergency Medicine; PCP Nurse Practitioner
DX: G47.00 Insomnia, unspecified (principal); D64.9 Anemia, unspecified; Z79.899 Other long term (current) drug therapy
CPT/HCPCS: 36415; 80053; 84443; 85025; 99284

== ENCOUNTER 2025-07-30 11:24 | Outpatient (AMB) | payer OTHER, SELFPAY ==
--- NOTE | 2025-07-30 11:33 | A.OFFVIS_ITS ---
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 She is a patient of Dr. De Jesus. She is seen for the following urologic conditions - nephrolithiasis Long history of stone Recent CT scan 3 mm right, 5 mm left lower pole Does have pain right lower back Consistent with musculoskeletal on examination Family history stones with mother Prior intervention with ureteroscopy - Dr. Rachel Sutherland Initiate vitamin B6, allopurinol Six-month follow-up KUB with Uro risk PFSH Medical History Cocaine dependence, uncomplicated History of kidney stones Post-traumatic stress disorder, chronic Mild intermittent asthma, uncomplicated Migraine with aura, not intractable, without status migrainosus Chronic viral hepatitis C Opiate abuse, continuous Surgical History History of lithotripsy Social History Patient Tobacco Use Status: Current someday Tobacco user Substance Use Type: Heroin Review of Systems Const Denies chills and Denies fever(s) Card Reports no additional complaints and Denies syncope Resp Denies cough GI Denies abdominal pain and Denies heartburn Reports as per HPI and Denies change in libido Neuro Denies syncope Psych Denies change in libido Endo Denies change in libido Physical Exam Const General: cooperative, healthy appearing, comfortable and no acute distress Orientation/consciousness: patient oriented x3 HEENT Face and sinus: Yes normal facial exam Mouth: moist mucous membranes Neck Neck: Yes normal visual inspection, Yes full ROM and Yes trachea midline Chest Chest palpation & inspection: normal inspection of the chest Resp Effort & Inspection: normal respiratory effort, able to speak in complete sentences and no respiratory distress GI Inspection: Yes normal to inspection Back/Spine/Pelvis Cervical Spine: normal cervical lordosis Thoracic/Lumbar Spine: thoracic and lumbar spine normal to inspection Skin General skin exam: no rashes or lesions noted Neuro General: patient oriented x3, gait normal, tone normal and moves all extremities Extrem General: Yes normal to inspection and Yes capillary refill normal Results AMB Urinalysis, Automated UA Leukoctes 0 Nick/uL Last Edit by Kathia Reece A on 07/30/25 11:42 UA Nitrite Negative Last Edit by Kathia Reece A on 07/30/25 11:42 UA Urobilinogen 0.2 mg/dL Last Edit by Kathia Reece A on 07/30/25 11:4 2 UA Protein 0 mg/dL Last Edit by Kathia Reece [facility] on 07/30/25 11:42 UA pH 6.0 Last Edit by Kathia Reece A on 07/30/25 11:42 UA Blood 0 Rhett/uL Last Edit by Kathia Reece [facility] on 07/30/25 11:42 UA Specific [place] 1.015 Last Edit by Kathia Reece A on 07/30/25 11: 42 UA Ketone Negative Last Edit by Kathia Reece A on 07/30/25 11:42 UA Bilirubin 0 mg/dL Last Edit by Kathia Reece A on 07/30/25 11:42 UA Glucose 0 mg/dL Last Edit by Kathia Reece A on 07/30/25 11:42 Results Reviewed Results Reviewed: Laboratory Last Values Urine pH (Auto) 6.0 07/30/25 11:34 Specific [place] (Auto) 1.015 07/30/25 11:34 Urine Protein (Auto) 0 mg/dL 07/30/25 11:34 Glucose (UA)(Auto) 0 mg/dL 07/30/25 11:34 Urine Ketones (Auto) Negative 07/30/25 11:34 Urine Blood (Auto) 0 Rhett/uL 07/30/25 11:34 Urine Nitrite (Auto) Negative 07/30/25 11:34 Urine Bilirubin (Auto) 0 mg/dL 07/30/25 11:34 Urine Urobilinogen (Auto) 0.2 mg/dL 07/30/25 11:34 Leukocyte Esterase (Auto) 0 Nick/uL 07/30/25 11:34 Assessment & Plan Assessment & Plan (1) Bilateral nephrolithiasis: Code(s): N20.0 - Calculus of kidney Category: Medical Plan Uro risk KUB Vitamin B6 and allopurinol Orders: Orders AMB Urinalysis Automated Today Z13.9 - Encounter for screening, unspecified XR KUB 6 Months N20.0 - Calculus of kidney URORISK Today N20.0 - Calculus of kidney Medications: New allopurinol 100 mg PO DAILY 90 tabs 1RF 90 days N20.0 - Calculus of kidney pyridoxine (vitamin B6) 50 mg PO DAILY 90 tabs 1RF 90 days N20.0 - Calculus of kidney Patient Instructions: This note is constructed using voice recognition software. While every effort has been made to ensure accuracy flight attendant errors may have been included. Imaging studies, laboratory and physical exam results were discussed and reviewed in detail. No major barriers to patient understanding were identified. An opportunity to ask questions regarding the treatment plan was provided. All questions were answered. The patient expressed understanding and agreement with the above treatment plan. The patient is aware they should contact our office by phone for worsening of their current condition or the appearance of new urologic symptoms. Compliance is encouraged with any medications and followup testing that is ordered. It is a privilege to participate in the urologic care of your patient. If you have any questions or concerns regarding treatment for the above conditions, or other urologic issues, please do not hesitate to contact me. The office telephone contact is [phone]. Sincerely, Dr Mayo Ferrer MD, [facility] - Urology Compassionate Specialist Care for the Genitourinary System Coding Level of Care Code New Pt Level 4 (45663) Diagnoses Bilateral nephrolithiasis N20.0
== END 2025-07-30 12:10 | disposition home or self-care (01) ==
LOC: HO.HUSH 11:25
PROVIDERS: PCP Nurse Practitioner; Visit Provider Urology
DX: N20.0 Calculus of kidney (principal); Z13.9 Encounter for screening, unspecified
CPT/HCPCS: 99204

== ENCOUNTER → 2025-07-30 11:24 | Outpatient (BNVA) | payer OTHER, SELFPAY | PROVIDERS: PCP Nurse Practitioner; Visit Provider Urology | DX: N20.0 Calculus of kidney (principal) | CPT/HCPCS: 81003; 99202 ==